=== PATIENT | male | born 2000 | race Caucasian/White ===

== ENCOUNTER 2022-02-23 18:47 | Emergency (ER) | payer OTHER ==
[~2022-02-23] VITALS: Ht 188 cm; Wt 88.5 kg
[2022-02-23 18:51] VITALS: BP 106/86; TEMP 98.5
== END 2022-02-23 20:30 | disposition home or self-care (01) ==
LOC: ED 18:47
PROC: 0HQDXZZ Repair Right Lower Arm Skin, External Approach (ICD-10-PCS; principal; 2022-02-23)
DX: S51.011A Laceration without foreign body of right elbow, initial encounter (principal); W22.8XXA Striking against or struck by other objects, initial encounter; Y93.89 Activity, other specified; Y92.89 Other specified places as the place of occurrence of the external cause; S60.221A Contusion of right hand, initial encounter
CPT/HCPCS: 90715; 99282

== ENCOUNTER 2022-08-04 11:05 | Day surgery (SDC) | payer OTHER | END 2022-08-04 12:45 | disposition home or self-care (01) | LOC: OR 11:05 | PROVIDERS: ATTEND Internal Medicine Gastroenterology | PROC: 0DB98ZX Excision of Duodenum, Via Natural or Artificial Opening Endoscopic, Diagnostic (ICD-10-PCS; principal; 2022-08-04) | DX: R10.13 Epigastric pain (principal); K29.60 Other gastritis without bleeding; K29.80 Duodenitis without bleeding; K21.00 Gastro-esophageal reflux disease with esophagitis, without bleeding | CPT/HCPCS: J2001; J2704; J7120 ==